=== PATIENT | male | born 1970 | race Caucasian/White ===

== ENCOUNTER 2023-05-12 09:21 | Emergency (ER) | payer BC ==
[2023-05-12] MEDS ORDERED: Sodium Chloride 0.9% 10 ML Syringe FLUSH PRN (09:45)
[2023-05-12] MEDS: Meclizine 25 MG Tab PO ONE (09:59)
[2023-05-12] MEDS: Sodium Chloride 0.9% 1,000 ML IV ONE (09:59)
[2023-05-12] MEDS: Ondansetron 4 MG/2 ML SDV IVPUSH ONE (09:59)
[2023-05-12 10:01] LABS: BASOPHILS PERCENT AUTO 0.8 % (0.0-2.0); EOSINOPHILS ABSOLUTE AUTO 0.03 K/uL (0.00-0.50); EOSINOPHILS PERCENT AUTO 0.2 % (0.0-5.0); HEMOGLOBIN 16.2 g/dL (13.1-16.8); LYMPHOCYTES ABSOLUTE AUTO 1.47 K/uL (0.50-3.50); LYMPHOCYTES PERCENT AUTO 12.2 % (10.0-50.0); MEAN CORPUSCULAR HEMOGLOBIN 31.3 pg (28.2-33.3); MEAN CORPUSCULAR HGB CONC 34.5 g/dL (31.7-36.0); MEAN CORPUSCULAR VOLUME 90.7 fL (84.0-98.0); MONOCYTES ABSOLUTE AUTO 0.77 K/uL (0.00-1.00); MONOCYTES PERCENT AUTO 6.4 % (2.0-14.0); NEUTROPHILS PERCENT AUTO 80.4 % (45.0-80.0); PLATELET COUNT,PLT 278 K/uL (150-350); RED BLOOD CELL COUNT 5.18 M/uL (4.33-5.41); WHITE BLOOD CELL COUNT,WBC 12.1 K/uL (4.0-10.2)
[2023-05-12 10:22] LABS: ALANINE AMINOTRANSFERASE,ALT 69 U/L (12-78); ALBUMIN 4.4 g/dL (3.4-5.0); ALKALINE PHOSPHATASE 90 IU/L (46-116); ASPARTATE AMNIOTRANSFERASE,AST 22 U/L (15-37); BILIRUBIN TOTAL 0.8 mg/dL (0.2-1.0); BLOOD UREA NITROGEN,BUN 18 mg/dL (7-18); CALCIUM 9.6 mg/dL (8.5-10.1); CARBON DIOXIDE,CO2 26.8 mmol/L (21.0-32.0); CHLORIDE,CL 99 mmol/L (98-107); CREATININE 1.33 mg/dL (0.51-1.17); GLUCOSE RANDOM 186 mg/dL (70-99); POTASSIUM,K 4.1 mmol/L (3.5-5.1); PROTEIN TOTAL,TP 8.4 g/dL (6.4-8.2); SODIUM,NA 131 mmol/L (136-145)
[2023-05-12 10:24] LABS: ANION GAP 9.3 meq/L (7-15); ESTIMATED GFR 64 mL/min (>=60)
== END 2023-05-12 11:00 | disposition home or self-care (01) ==
LOC: LL.ED 09:21
DX: H81.11 Benign paroxysmal vertigo, right ear (principal)
CPT/HCPCS: 36415; 80053; 85025; 96361; 96374; 99283; 99284-25; A9270-GY; J2405; J7030